=== PATIENT | female | born 1970 | race African-American/Black ===

== ENCOUNTER 2016-07-28 22:12 | Emergency (ER) | payer OTHER ==
--- NOTE | ~2016-07-28 | EKG ---
PATIENT: NOEMI LEE UNIT #: [id number] Ventricular Rate: 63 BPM Atrial Rate: 63 BPM P-R Interval: 178 ms QRS Duration: 92 ms Q-T Interval: 438 ms QTC Calculation(Bezet): 448 ms P [place]: 47 degrees Calculated R Brashe[place]: -31 degrees Calculated T [place]: 0 degrees Diagnosis Line: Normal sinus rhythm Diagnosis Line: Left axis deviation Diagnosis Line: Abnormal ECG Diagnosis Line: When compared with ECG of 22-FEB-2016 11:07, Diagnosis Line: Nonspecific T wave abnormality now evident in Diagnosis Line: Anterior leads Diagnosis Line: Confirmed by REHAN RAMIREZ MD ([id number]) on 07/29/2016 Diagnosis Line: 6:30:06 PM INTERPRETING MD: JAMES BOJORQUEZ
[~2016-07-28 22:12] MED LIST: AMLODIPINE BESY10 MG PO; APRESOLINE; ASPIRIN EC81 M1; ASPIRIN EC81 M1 PO; BACTRIM DS TABL1 TA1 PO; COREG; COREG PO; COREG6.25 MG PO; COZAAR; COZAAR100 MG PO; FERRO-TIME325 MG PO; FLONASE ALLERG9.9 ML; HYDRALAZINE HCL50 MG PO; IRON1 TAB; LASIX PO; LOSARTAN POTAS100 MG; PROTONIX PO; SINGULAIR; SINGULAIR5 MG PO; TRIAMCINOLONE AC1 GM EXT; VITAMIN D50000 UNIT PO; ZYRTEC; ZYRTEC PO
[2016-07-28 22:20] LABS: POC - CKMB 1.9 ng/mL (0.0-7.9); POC - TROPONIN <0.05 ng/mL (<=0.05)
[2016-07-28 22:38] LABS: BASOPHIL# 0.2 X10e3 (0-0.3); BASOPHIL% 1.5 % (0-2.5); DIFF IND NO; EOSINOPHIL# 0.4 X10e3 (0-0.7); EOSINOPHIL% 3.8 % (0.0-7.0); HEMATOCRIT 25.6 % (35.0-45.0); LYMPHOCYTE# 2.4 X10e3 (1.0-3.5); LYMPHOCYTE% 23.3 % (17.0-45.0); MEAN CELL VOLUME 88.1 FL (83-96); MEAN CORPUSCULAR HEMOGLOBIN 27.6 PG (28-34); MEAN CORPUSCULAR HGB CONC 31.4 g/dL (30-36); MEAN PLATELET VOLUME 7.5 FL (6.5-11.5); MONOCYTE# 0.6 X10e3 (0-1.0); MONOCYTE% 5.8 % (3.0-12.0); NEUTROPHIL# 6.8 X10e3 (1.5-7.1); NEUTROPHIL% 65.6 % (40-75); PLATELET COUNT 296 X10e3 (140-420); RED BLOOD COUNT 2.91 X10e (3.90-5.30); RED CELL DISTRIBUTION WIDTH 15.5 % (11.0-15.5); WHITE BLOOD COUNT 10.4 X10e3 (4.0-10.5)
[2016-07-28 22:55] LABS: BUN/CREATININE RATIO 9.56; CALCIUM SERUM 9.2 mg/dL (8.4-10.2); CREATININE SERUM 4.6 mg/dL (0.6-1.4); GLOM FILT RATE Estimated 12.5 mL/min (>60); POTASSIUM 4.3 mmol/L (3.5-5.1)
== END 2016-07-28 23:51 | disposition home or self-care (01) ==
LOC: CED 22:12
PROVIDERS: Emergency Medicine
DX: D64.9 Anemia, unspecified (principal); J45.909 Unspecified asthma, uncomplicated; N28.9 Disorder of kidney and ureter, unspecified; I10 Essential (primary) hypertension; Z98.890 Other specified postprocedural states
CPT/HCPCS: 36415; 80048; 82553; 84484; 84703; 85025; 93005; 99283

== ENCOUNTER 2016-07-31 05:10 | Emergency (ER) | payer BC, OTHER | END 2016-07-31 06:51 | disposition home or self-care (01) | LOC: CED 05:10 | DX: H47.10 Unspecified papilledema (principal); I12.9 Hypertensive chronic kidney disease with stage 1 through stage 4 chronic kidney disease, or unspecified chronic kidney disease; N18.9 Chronic kidney disease, unspecified | CPT/HCPCS: 99282 ==

== ENCOUNTER 2016-08-03 13:20 | Observation (INO) | payer BC, OTHER ==
--- NOTE | ~2016-08-03 | CT71 ---
[facility] A Service [facility] RADIOLOGY TEXT RESULTS PATIENT: NOEMI LEE LOCATION: [facility] : [birth year] UNIT #: [id number] AGE: [address]: Akila Schmitz MD SEX: F ORDER DR: [id number] [facility] [address] [facility]. [place], [place] [address] [id number] MR#: [id number] Acc #: [id number] NAME: NOEMI LEE. : 1970 SEX: F STUDY DATE/TIME: 08/03/2016 14:43 UNIT: [facility] ROOM: [facility] STUDY DESCRIPTION: CT Head Wo Contrast Attending Physician: Akila Schmitz M.D. Ordering Physician: Fredi Boateng D.O. Primary Care Physician: [facility] MEDICAL IMAGING REPORT This report is preliminary unless electronic signature is present EXAM Head CT without contrast. HISTORY Headache with hypertension beginning last night. COMPARISON 05/12/2016 TECHNIQUE Axial images were obtained without contrast. This CT exam was performed with one or more of the following radiation dose reduction techniques: automatic exposure control, adjustment of mA and/or kV according to patient size, and iterative reconstruction. FINDINGS Axial noncontrast images were obtained from the skull base to the vertex. Ventricular size and configuration are normal. There is no evidence of acute infarct or hemorrhage. There are no extra-axial fluid collections. No mass lesion or mass effect is seen. There are no skull fractures. IMPRESSION Normal noncontrast head CT. Dictated by... Randy Riggins M.D. THIS IS AN ELECTRONICALLY VERIFIED REPORT Randy Riggins M.D. at 08/04/2016 10:15 AM RLF/tmw [facility] A Service [facility] RADIOLOGY TEXT RESULTS PATIENT: NOEMI LEE LOCATION: [facility] : 72 UNIT #: [id number] AGE: [address]: Akila Schmitz MD SEX: F ORDER DR: TD: 08/03/2016 16:16 JOB #: [id number] MEDICAL IMAGING REPORT Page 1 of 1 COPY
--- NOTE | ~2016-08-03 | CO ---
Unit #: [id number] #: [id number] Patient: NOEMI LEE [id number] [facility]. [place], [place] [address] [id number] MR#: [id number] NAME: NOEMI LEE. ROOM: 567 Age: 46 Sex: F Admission Date: 08/03/2016 : 1970 Attending Physician: Akila Schmitz M.D. Primary Care Physician: Denise Miranda [facility] CONSULTATION REPORT REASON FOR CONSULTATION CKD. HISTORY Patient is a 46-year-old female followed by [facility] nephrology who presents with a headache. The patient has had multiple admissions in the last few weeks to the emergency room with similar complaints. The patient has a history of hypertension and biopsy-proven hypertensive arteriolosclerosis. The patient's baseline creatinine is about 4.5. Her last visit with [place] nephrology was in March. The patient is on Coreg and hydralazine for hypertension and denies having missed any doses. The patient gives a history of being diagnosed with pseudotumor cerebri approximately a month to 2 months ago, as well as being provided with a neurology consultation as an outpatient. However, patient has not gone for this as yet. The patient is morbidly obese with a BMI of 56. The patient denies any tobacco or drug use, although chart mentions a history of cocaine abuse. Unclear if she has been taking it recently. On admission the patient's blood pressure was 200/100 per the patient. Documented pressures are in the 180s/90 range. The patient's blood pressure this morning is much better at 150/80. Unclear if the patient is compliant with her medications. Patient had a CT scan of the head done, which did not reveal any abnormalities. The patient was scheduled as an outpatient to have an AV fistula placed last week. However, the patient did not have this done, as she works for the [employer] and would prefer to have it done following the end of the school year. She has been scheduled for this on September 07, according to her. The patient's creatinine has risen from a baseline of 4.5 as an outpatient to about 4.9 today. The patient denies any nausea, vomiting or diarrhea. She does, however, have decreased p.o. intake due to her headaches. PAST MEDICAL HISTORY As above. PAST SURGICAL HISTORY As above. MEDICATIONS Unit #: [id number] #: [id number] Patient: NOEMI LEE Reviewed. PHYSICAL EXAMINATION VITAL SIGNS: The patient is afebrile with a heart rate of 57, a blood pressure of 154/99 currently. GENERAL: The patient is morbidly obese, lying comfortably in bed, no apparent distress. CHEST: Clear to auscultation bilaterally. CARDIOVASCULAR: S1, S2 present. Regular rate and rhythm. No S3, S4, murmurs, rubs or gallops. ABDOMEN: Soft, nontender, nondistended, obese. No guarding, rigidity or rebound. EXTREMITIES: With no edema. DIAGNOSTIC STUDIES LABS: Labs are significant for a creatinine of 4.9, sodium of 137, chloride 109, carbon dioxide 20, calcium 8.7, phosphorous 5.3, magnesium 2.3. Hemoglobin is 9.2. UA is positive for protein. The patient has a history of about 3-4 grams of protein as an outpatient. The patient has some red and white cells in the urine, and this has been sent for culture, which is currently pending. ASSESSMENT AND PLAN 1. CKD stage 4. Biopsy-proven arteriolosclerosis. The patient's baseline creatinine is approximately 4 to 4.5. 2. Acute kidney injury, mild. Unclear if this is progressive CKD versus mild volume depletion from decreased p.o. intake. 3. Hypertension. Mild hypertensive urgency, which is now better. We will check a urine drug screen to rule out any recreational drug abuse. Continue Coreg and hydralazine for now. Question compliance of the patient with her hypertensive medications. 4. Headache, unclear etiology. This could be due to hypertension. Unclear if the patient has a diagnosis of pseudotumor cerebri. She may benefit from an MRI and a neurology evaluation either inpatient or outpatient. The patient could also have migraine, since she has been suffering from this for several years at this time. 5. Anemia, mild. Will check iron profile. She may need IV iron. PLAN No indication for dialysis at this time. The patient has progressive CKD; however, her volume, as well as her labs, remains not critical and, at this time, does not warrant initiation of hemodialysis. Continue currently medications. Will closely follow this patient. Thank you for the consultation. Dictated by... Axel Cazares/teetee TD: 08/04/2016 10:49 JOB #: [id number] Unit #: [id number] #: [id number] Patient: DES LEEAYAN Jose Manuel CONSULTATION REPORT Page 1 of 1 X X CONSULTATION REPORT
--- NOTE | ~2016-08-03 | BMI ---
[facility] Nutrition Therapy DATE: 08/04/16 Patient: NOEMI Richard ROSA Physician: DANA Address: [address] [place] [address] Room/Bed: [address] [place] [address], Zip: [place] [address] Admit Date: 08/03/16 Date of : [birth year] Height: 5 1 Weight: 302 137.2 HIGH BMI NOTE: DX: 46 Y.O. FEMALE ADMITTED FOR HIGH BLOOD PRESSURE ANTHROPOMETRICS: 5'1", WT: 302# (137 KG), BMI: 57.1 DIET: RENAL INTERVENTION: 1. RENAL DIET RECOMMENDATIONS: 1. RECOMMEND TO ADD HH TO CURRENT DIET ORDER ABOVE TO PROMOTE GRADUAL WEIGHT LOSS TOWARDS HEALTHY BMI (19.0-25.0) OR +/-10%IBW RD WILL F/U PER PROTOCOL Respectfully, NEVILLE SANDERS MS, RD, LD Food and Nutritional Services [facility] cc: client file
--- NOTE | ~2016-08-03 | HP ---
Unit #: [id number] #: [id number] Patient: NOEMI LEE [id number] [facility] [address] [facility]. [place], [place] [address] [id number] MR#: [id number] NAME: NOEMI LEE. ROOM: Age: 46 Sex: F Admission Date: 08/03/2016 : 1970 Attending Physician: Fredi Boateng D.O. Primary Care Physician: [facility] HISTORY AND PHYSICAL CHIEF COMPLAINT Headache, high blood pressure. HISTORY OF PRESENT ILLNESS The patient is a 46-year-old female with past medical history of chronic kidney disease, chronic anemia, hypertension, who presented to the emergency department for evaluation of the above. The patient states that she has had intermittent headache since July 27, 2016. She states that the headache returned on the evening prior to admission. She states it involves her entire head but is worse on the left side. She describes it as "pressure." She states that it feels like she is "swimming." There are no exacerbating or alleviating factors. She states it is similar to when she has had headaches in the past. She denies any fever, no light or sound sensitivity. She denies any cough or fever. No bowel or bladder problems. In the emergency department initial blood pressure was 187/90, pulse 64. CT of the head was normal. Laboratory notable for BUN and creatinine of 57 and 4.7 respectively. She was given 4 mg of morphine as well as 4 mg of Zofran. She is being admitted to [facility] for evaluation and further treatment. Most recent blood pressure is 154/94. Of note, the patient was seen in the emergency department on July 31, 2016 for headache and was discharged home with sinusitis. PAST MEDICAL HISTORY 1. Admission to [facility] February 22, 2016 for chest pain. She underwent a stress test during that admission that showed no evidence of ischemia, with an ejection fraction of 70%. 2. Chronic kidney disease, followed by [facility] nephrology. The patient states that she is supposed to be getting a fistula placed. She states that she was on dialysis following . 3. Hypertension. 4. Chronic anemia. PAST SURGICAL HISTORY . SOCIAL HISTORY The patient denies tobacco use. She states that she drinks occasionally. Per record review there is a history of former cocaine abuse. [facility] Unit #: [id number] #: [id number] Patient: NOEMI LEE FAMILY HISTORY Family history is notable for her maternal grandmother having congestive heart failure, coronary artery disease, diabetes. There is no family history of kidney disease. ALLERGIES No known allergies. HOME MEDICATIONS Carvedilol, hydralazine, iron, aspirin, Zyrtec, Singulair, amoxicillin. Home medications will need to be reviewed and verified. REVIEW OF SYSTEMS A complete review of systems is negative except as indicated in the HPI. Patient states that she has been taking her medications as prescribed with the last dose being this morning. She states that three to four months ago her hydralazine was increased from 50 mg t.i.d. to 100 mg t.i.d. DIAGNOSTIC STUDIES IMAGING: CT of the head shows nothing acute. LABORATORY: Complete blood count notable for hemoglobin and hematocrit of 8.9 and 29.1 respectively. INR is 1. Comprehensive metabolic panel notable for bicarb of 21, BUN and creatinine 57 and 4.7 respectively, albumin is 3.4. Urinalysis notable for 3+ protein, 1+ blood with 10 to 25 red blood cells. PHYSICAL EXAMINATION VITAL SIGNS: Temperature is 97.9. Pulse 64. Respirations 16. Blood pressure 187/90. GENERAL: The patient is an -Irish female who is awake and alert, in no acute distress. HEENT: The head is atraumatic. Mucous membranes are moist. NECK: Neck is supple. Trachea is midline. CARDIOVASCULAR: Regular rate and rhythm. LUNGS: Lungs are clear to auscultation bilaterally with no increased work of breathing. ABDOMEN: Abdomen is soft, nontender, with bowel sounds present in all four quadrants. EXTREMITIES: Extremities are nontender, with no pedal edema. NEUROLOGIC: The patient is awake and alert. She follows commands. PSYCHIATRIC: Mood and affect are normal. The patient is cooperative. SKIN: Skin of examined areas is warm and dry. ASSESMENT The patient is a 46-year-old female with: 1. Uncontrolled hypertension. 2. Chronic kidney disease. The patient's creatinine was 4.6 on July 28, 2016. It is 4.7 today. She is followed by [facility] nephrology. 3. Chronic anemia. The patient's hemoglobin was 8 on July 28, 2016. It was 8.9 today. 4. Morbid obesity with a BMI of 56. PLAN 1. Admit for observation to intermediate level. 2. Two-D echo for further evaluation of uncontrolled hypertension. Unit #: [id number] #: [id number] Patient: NOEMI LEE 3. Check EKG and cardiac enzymes. 4. TSH. 5. P.r.n. clonidine. 6. Consult Dr. Appiah regarding chronic kidney disease. 7. Strict Is and Os. 8. Urine culture and sensitivity on urine in the lab. 9. P.r.n. [place]. 10. P.r.n. Zofran. 11. Repeat labs in the morning. 12. SCDs for DVT prophylaxis. 13. Additional workup and consultants based on above. Dictated by Axel Lindsey/art TD: 08/03/2016 16:47 JOB #: [id number] HISTORY AND PHYSICAL Page 1 of 1 X Betty Lambert MD X HISTORY AND PHYSICAL
--- NOTE | ~2016-08-03 | EKG ---
PATIENT: NOEMI LEE UNIT #: [id number] Ventricular Rate: 57 BPM Atrial Rate: 57 BPM P-R Interval: 174 ms QRS Duration: 90 ms Q-T Interval: 450 ms QTC Calculation(Bezet): 438 ms P [place]: 67 degrees Calculated R [place]: -30 degrees Calculated T [place]: 7 degrees Diagnosis Line: Sinus bradycardia Diagnosis Line: Left axis deviation Diagnosis Line: Abnormal ECG Diagnosis Line: When compared with ECG of 28-JUL-2016 22:05, Diagnosis Line: Nonspecific T wave abnormality no longer evident Diagnosis Line: in Anterior leads Diagnosis Line: Confirmed by WANG KATHLEEN MD ([id number]) on Diagnosis Line: 08/04/2016 11:09:35 PM INTERPRETING MD: CHARLENE
--- NOTE | ~2016-08-03 | CO ---
Unit #: [id number] #: [id number] Patient: NOEMI LEE [id number] [facility] [address] [facility]. [place], [place] [address] [id number] MR#: [id number] NAME: NOEMI LEE. ROOM: 567 Age: 46 Sex: F Admission Date: 08/03/2016 : 1970 Attending Physician: Akila Schmitz M.D. Primary Care Physician: Denise Miranda [facility] Requesting Physician: Akila Schmitz M.D. Consultation Date: 08/04/2016 CONSULTATION REPORT REASON FOR CONSULTATION Headaches. PATIENT IDENTIFICATION This is a 46-year-old, right-handed, female who is evaluated in room 567 at [facility]. SOURCE OF INFORMATION The patient and evaluation by Dr. Schmitz and my discussion with Dr. Schmitz. PROBLEM LIST 1. Hypertension. 2. Chronic kidney disease. 3. Chronic anemia. 4. Morbid obesity with BMI of 56. HISTORY OF PRESENT ILLNESS This is a very pleasant 46-year-old, right-handed, female who is evaluated in room 567 at [facility]. She was admitted because she has been having some headaches. In looking at the records, she has been to the hospital several times with headaches. This time it was diagnosed that most likely it was her hypertension. She has been as high as 196 systolic and 104 diastolic. When that was treated, she is doing much better, so she was seen by nephrology, as her nephrologists are at [facility], and they want to make sure that neurological evaluation is done. She had a head CT done, which was reported as unremarkable, but I am concerned there may be slit-like ventricles, but the patient refused LP, and also she has renal issues, so she could not be put on Diamox or Topamax. The headaches are much better anyway, but the concern is still there. She denies any vision changes. She denies any change in color or visual marie. She denies any neck stiffness. She does have weight issues, and she says that "I am working on it." Unfortunately, lately she does report some increased in the weight. No falls or injuries. Nothing suggesting meningismus. No infection. She does not take any megavitamins or has dietary changes or is taking any hormonal therapy or Erythromycin or tetracycline or control pills or steroids. No falls, head injury, etc. PAST MEDICAL HISTORY As discussed above. PAST SURGICAL HISTORY Unit #: [id number] #: [id number] Patient: NOEMI LEE As discussed above. ALLERGIES None. HOME MEDICATIONS Supposedly were carvedilol, hydralazine, iron, aspirin, Zyrtec, Singulair, amoxicillin, which was started lately. FAMILY HISTORY Reviewed. Congestive heart failure in maternal grandmother and coronary artery disease, diabetes. SOCIAL HISTORY The patient is apparently living with her fiance. She denies tobacco use. She drinks alcohol occasionally. There is concern about prior cocaine use, but I was not able to corroborate that. REVIEW OF SYSTEMS A detailed review of systems was attempted. CONSTITUTIONAL: There are weight issues. No fever, chills, rigors or sweats. HEENT: Headache is much better. No neck problems. CARDIOVASCULAR: No chest pain, clubbing, cyanosis, orthopnea or palpitations. PULMONARY: No shortness of air, cough or expectorations. GASTROINTESTINAL: No nausea, vomiting, diarrhea or constipation. GENITOURINARY: No genitourinary symptoms. EXTREMITIES: No other extremity problems. SPINE: No back problem. PSYCHIATRIC: No psychiatric issues. NEUROLOGIC: Issue was headaches. HEMATOLOGIC: No hematologic problems. DERMATOLOGIC: No dermatologic problems. ENDOCRINE: No endocrine problems. NEPHROLOGY: She has renal problems. PHYSICAL EXAMINATION VITAL SIGNS: Latest vital signs were temperature 97.7, pulse 65, respirations 20, blood pressure 116/69, weight 302 pounds. BMI was 56. NEUROLOGIC EXAMINATION MENTAL STATUS: The patient is awake. She is alert. She is oriented. She can name. She can follow commands. No right/left confusion. No finger agnosia. CRANIAL NERVES: Examination demonstrates full marie of vision to confrontation. Eye movements are conjugate. I did not see any ptosis. I did not see any nystagmus. Extraocular movements are intact. Visual acuity is 20/20 -2, both eyes, uncorrected. Funduscopic examination was not successful. Sensation of the face and scalp are normal. Strength and muscles of facial expression are normal. Hearing seemed to be intact bilaterally. Tongue was midline. I could not visualize the oropharynx or uvula. Head turning was spontaneous. MOTOR: Examination demonstrated normal bulk and tone. Strength was essentially 5/5. SENSORY EXAMINATION: Intact for soft touch and pain sensation. No extinction was seen. Romberg was not evaluated. GAIT: Examination was deferred. Unit #: [id number] #: [id number] Patient: NOEMI LEE REFLEXES: I could not get any reflexes. Toes are equivocal. COORDINATION: Coordination was normal, rzrbbc-bp-brun-to-finger and ami-ci-sdwxna. DIAGNOSTIC STUDIES LABS: BUN was 53, creatinine was 4.9. TSH was 5.25. White count is 11.4, H and H of 9.2 and 29.6, platelet count is 373. Urinalysis - Some WBCs. IMAGING: Head CT was reviewed. IMPRESSION This is a very interesting 46-year-old female with some weight issues and headaches, although it looks like this was probably from hypertension because she is much better without any other treatment. She does not even tell me, except for a few occasions that she came to the hospital, that she has chronic headaches or migraine-type situation. She has no vision changes, but with patients of her age and her weight, headaches are always concerning for conditions like pseudotumor cerebri. She refuses LP, so my recommendation is to have outpatient ophthalmology evaluation, which will at least consist of dilated examination, funduscopic and also visual marie. If there is any concern, then definitely spinal tap with opening pressure would be indicated, and further treatment would be based on that and maybe at that time consider medications, but at present everything is doing fine, and I told her that it is not just the headache and it is not just the vision but rather the visual marie that are the biggest problem, and that is why she has to take it very seriously. She states she will follow up, and I have informed Dr. Schmitz that she may be discharged to do that testing. She has to go to [facility] ophthalmology department because there is a very good neuroophthalmologist, but for just the testing, she can go anywhere also. Call me for any other questions, issues or concerns, and I will be more than glad to revisit this situation. Nonetheless, I do want to say that she has to lose weight, and dietary evaluation and treatment is recommended outpatient or otherwise. Dictated by... Axel Pizano/teetee TD: 08/05/2016 11:55 JOB #: [id number] Unit #: [id number] #: [id number] Patient: NOEMI LEE CONSULTATION REPORT Page 1 of 1 X Talha Burton MD X CONSULTATION REPORT
--- NOTE | ~2016-08-03 | DS ---
Unit #: [id number] #: [id number] Patient: NOEMI NOLASCO [id number] [address] [address] [id number] I MR#: [id number] NAME: NOEMI NOLASCO. ROOM: 567 Age: 46 Sex: F Admission Date: 08/03/2016 : 1970 Discharge Date: 08/05/2016 Attending Physician: Akila Schmitz M.D. Primary Care Physician: [facility] DISCHARGE SUMMARY PRINCIPAL DIAGNOSES 1. Hypertensive urgency. 2. Left sided headache, not otherwise specified. 3. Acute kidney injury on chronic kidney disease stage 5: Discharge creatinine 4.9. 4. Anemia of chronic kidney disease. 5. Obstructive sleep apnea, treated. 6. Seasonal allergies. 7. Iron deficiency anemia. 8. Morbid obesity. CONSULTANTS 1. Dr. Ha - [facility]ph[facility]. 2. Dr. Burton - Neurology. PROCEDURE CT of the head without contrast on August 03, 2016, which is normal. CLINICAL HISTORY/HOSPITAL COURSE Ms. Nolasco is a 46-year-old -[place] female with a history of severe chronic kidney disease who presented to the emergency department with complaints of headache and found to have high blood pressure at home. Please refer to H and P for further details. Blood pressure upon presentation was 187/90 and patient was given appropriate IV medications. Patient was also complaining of headache which has been present for several days. She underwent a CT scan of her head which was unremarkable. However, she has been in the ER on two occasions for this headache and, thus, was placed in observation for evaluation. In regards to patient's hypertension, she was placed back on her home medications and blood pressure has now remained stable. She will continue these medications upon discharge. In regards to patient's chronic kidney disease, her baseline creatinine appears to be approximately 4.[address] Ha was consulted. On the day of discharge, creatinine is 4.9 and patient has a mild non-anion gap metabolic acidosis with a discharge bicarbonate of 20. Dr. Ha gave the patient a small amount of IV fluids and stated simply she needed to follow up in the office. Plan is for patient to get a fistula as an outpatient. Patient is having recurrent intermittent headache over the past 7 to 10 days. After discussion with Dr. Ha, the patient has had those headaches on and off for several years. She has no neurologic deficit from the headache. She has questionable papilledema on examination but Unit #: [id number] #: [id number] Patient: NOEMI NOLASCO patient is refusing lumbar puncture for evaluation of pseudotumor cerebri. She is also not a candidate for Diamox therapy given her already known metabolic acidosis. This was discussed with Dr. Ha. The patient was seen in consultation by Dr. Burton who recommended patient to have outpatient dilated eye exam to evaluate for papilledema and formal visual field testing. If these are abnormal, LP can be pursued as an outpatient. He does not feel these are migraine-type headaches. Patient is also not a candidate for Topamax due to her metabolic acidosis. I will note, patient received antibiotics due to questionable sinusitis but this is not noted on CT scan of the head. She can complete her course of antibiotics as outlined. I have instructed her to continue with her CPAP given sleep apnea may contribute to headache. Patient will be discharged home today. DISCHARGE CONDITION Stable. DISCHARGE STATUS Discharge to home. DISCHARGE MEDICATIONS 1. Flonase 0.05% nasal spray, one spray per nostril daily. 2. Zyrtec 10 mg daily. 3. Carvedilol 12.5 mg b.i.d. 4. Hydralazine 100 mg p.o. t.i.d. 5. Ferrous sulfate 325 mg p.o. t.i.d. 6. Singulair 10 mg daily. 7. Aspirin 81 mg daily. 8. Amoxicillin 875 mg p.o. b.i.d. until complete. DISCHARGE INSTRUCTIONS Patient instructed to follow a heart healthy, low calorie diet. She has been encouraged to lose some weight given this is likely contributing to headache. She can increase her activity as tolerated. Should also monitor her phosphorus intake. FOLLOWUP Patient will follow up with Dr. Ha and/or her [facility] as previously scheduled. She can follow up with her primary care provider in two weeks. Again, she will be referred to ophthalmology for a dilated eye exam and, if papilledema, outpatient lumbar puncture. Time spent on case today - 47 minutes. Dictated by... Akila Schmitz M.D. IRIS/vesta TD: 08/07/2016 08:57 JOB #: [id number] Unit #: [id number] #: [id number] Patient: NOEMI NOLASCO DISCHARGE SUMMARY Page 1 of 1 X Akila Schmitz MD X DISCHARGE SUMMARY
[2016-08-03 13:14] LABS: BASOPHIL% 0.2 % (0-2.5); DIFF IND NO; EOSINOPHIL# 0.3 X10e3 (0-0.7); EOSINOPHIL% 2.6 % (0.0-7.0); HEMATOCRIT 29.1 % (35.0-45.0); HEMOGLOBIN 8.9 gm/dL (12.0-16.0); LYMPHOCYTE# 2.8 X10e3 (1.0-3.5); LYMPHOCYTE% 23.7 % (17.0-45.0); MEAN CELL VOLUME 88.4 FL (83-96); MEAN CORPUSCULAR HGB CONC 30.6 g/dL (30-36); MEAN PLATELET VOLUME 7.5 FL (6.5-11.5); MONOCYTE# 0.7 X10e3 (0-1.0); MONOCYTE% 6.3 % (3.0-12.0); NEUTROPHIL% 67.2 % (40-75); PLATELET COUNT 351 X10e3 (140-420); RED CELL DISTRIBUTION WIDTH 15.6 % (11.0-15.5); WHITE BLOOD COUNT 11.9 X10e3 (4.0-10.5)
[2016-08-03 13:25] LABS: PARTIAL THROMBOPLASTIN TIME 27.5 SECONDS (23.5-31.3); PROTHROMBIN TIME (PATIENT) 10.3 SECONDS (9.6-11.5)
[2016-08-03 13:45] LABS: URINE SOURCE CLEAN CATCH
[2016-08-03 13:53] LABS: ALBUMIN SERUM 3.4 g/dL (3.5-5.0); ALKALINE PHOSPHATASE 72 U/L (32-92); ALT (SGPT) 15 U/L (10-40); AST (SGOT) 12 U/L (10-42); BILIRUBIN,TOTAL 0.3 mg/dL (0.2-2.0); BLOOD UREA NITROGEN 57 mg/dL (9-23); BUN/CREATININE RATIO 12.12; CARBON DIOXIDE 21 mmol/L (22-31); CHLORIDE 110 mmol/L (100-111); CREATININE SERUM 4.7 mg/dL (0.6-1.4); GLOM FILT RATE Estimated 12.1 mL/min (>60); GLUCOSE FASTING 84 mg/dL (70-110); POTASSIUM 4.1 mmol/L (3.5-5.1); SODIUM 139 mmol/L (135-145)
[2016-08-03 13:54] LABS: BILIRUBIN, DIRECT <0.1 mg/dL (0.0-0.2); BILIRUBIN,INDIRECT 0.2 mg/dL (0.0-0.9)
[2016-08-03 14:12] LABS: URINE APPEARANCE CLEAR; URINE BACTERIA AUWI NEG (NEGATIVE); URINE BILIRUBIN NEG (NEG); URINE BLOOD 1+ (NEG); URINE COLOR YELLOW; URINE GLUCOSE NEG (NEG); URINE KETONE NEG (NEG); URINE LEUKOCYTE ESTERASE NEG (NEG); URINE NITRATE NEG (NEG); URINE PH 5.5 (5-8); URINE PROTEIN 3+ (NEG); URINE SPECIFIC GRAVITY 1.012 (1.003-1.035); URINE SQUAMOUS EPITHELIAL CELL OCC /[HPF]; URINE UROBILINOGEN 0.2 MG/DL (NEG)
[2016-08-03 14:15] LABS: CULTURE INDICATED? NO
[2016-08-03] MEDS ORDERED: HYDRALAZINE HC100 MG PO (16:40)
[2016-08-03] MEDS ORDERED: CARVEDILOL12.5 MG PO (16:41)
[2016-08-03] MEDS ORDERED: ASPIRIN81 MG PO (16:41)
[2016-08-03] MEDS ORDERED: IRON325 MG PO (16:41)
[2016-08-03] MEDS ORDERED: ZYRTEC10 M1 PO (16:42)
[2016-08-03] MEDS ORDERED: SINGULAIR PO (16:42)
[2016-08-03] MEDS ORDERED: AMOXICILLIN (16:42)
[2016-08-03] MEDS ORDERED: FLONASE 0.05% N16 G1 (16:42)
[2016-08-03 18:25] LABS: %MB 2.6 % (0.0-4.0); MB 1.7 ng/ml
[2016-08-04 00:20] LABS: %MB 2.8 % (0.0-4.0); MB 1.7 ng/ml
[2016-08-04 05:46] LABS: BASOPHIL# 0.2 X10e3 (0-0.3); BASOPHIL% 1.5 % (0-2.5); DIFF IND NO; EOSINOPHIL# 0.4 X10e3 (0-0.7); EOSINOPHIL% 3.9 % (0.0-7.0); HEMATOCRIT 29.6 % (35.0-45.0); HEMOGLOBIN 9.2 gm/dL (12.0-16.0); LYMPHOCYTE# 2.9 X10e3 (1.0-3.5); LYMPHOCYTE% 25.7 % (17.0-45.0); MEAN CELL VOLUME 88.1 FL (83-96); MEAN CORPUSCULAR HEMOGLOBIN 27.2 PG (28-34); MEAN CORPUSCULAR HGB CONC 30.9 g/dL (30-36); MEAN PLATELET VOLUME 7.7 FL (6.5-11.5); MONOCYTE# 0.7 X10e3 (0-1.0); MONOCYTE% 5.9 % (3.0-12.0); NEUTROPHIL# 7.2 X10e3 (1.5-7.1); PLATELET COUNT 373 X10e3 (140-420); RED BLOOD COUNT 3.36 X10e (3.90-5.30); RED CELL DISTRIBUTION WIDTH 15.5 % (11.0-15.5); WHITE BLOOD COUNT 11.4 X10e3 (4.0-10.5)
[2016-08-04 06:20] LABS: ALBUMIN SERUM 3.2 g/dL (3.5-5.0); BILIRUBIN,TOTAL 0.3 mg/dL (0.2-2.0); BUN/CREATININE RATIO 10.81; CALCIUM SERUM 8.7 mg/dL (8.4-10.2); CREATININE SERUM 4.9 mg/dL (0.6-1.4); GLOM FILT RATE Estimated 11.5 mL/min (>60); MAGNESIUM 2.3 mg/dL (1.6-3.0); PHOSPHOROUS 5.3 mg/dL (2.5-4.6); POTASSIUM 4.6 mmol/L (3.5-5.1); PROTEIN TOTAL SERUM 6.8 g/dL (6.0-8.3)
[2016-08-04] MEDS ORDERED: AMOXICILLIN875 MG PO (18:16)
== END 2016-08-05 00:05 | disposition home or self-care (01) ==
LOC: CED 13:20 → C5C 16:35
PROVIDERS: Emergency Medicine
DX: I16.0 Hypertensive urgency (principal); R51 Headache; I12.0 Hypertensive chronic kidney disease with stage 5 chronic kidney disease or end stage renal disease; N18.5 Chronic kidney disease, stage 5; N17.9 Acute kidney failure, unspecified; D63.1 Anemia in chronic kidney disease; G47.33 Obstructive sleep apnea (adult) (pediatric); J30.2 Other seasonal allergic rhinitis; E66.01 Morbid (severe) obesity due to excess calories; Z68.43 Body mass index [BMI] 50.0-59.9, adult; D50.9 Iron deficiency anemia, unspecified; I08.8 Other rheumatic multiple valve diseases
CPT/HCPCS: 36415; 70450; 80048; 80053; 80076; 81003; 82550; 82553; 83735; 84100; 84443; 84484; 84703; 85025; 85610; 85730; 87086; 87088; 87186; 93005; 93306; 96374; 96375; 99285; G0378; J2270; J2405

== ENCOUNTER 2016-10-05 23:39 | Emergency (ER) | payer BC, OTHER ==
[~2016-10-05 23:39] MED LIST changes: +AMOXICILLIN; +AMOXICILLIN875 MG PO; +ASPIRIN81 MG PO; +CARVEDILOL12.5 MG PO; +FLONASE 0.05% N16 G1; +HYDRALAZINE HC100 MG PO; +IRON325 MG PO; +SINGULAIR PO; +ZYRTEC10 M1 PO
== END 2016-10-06 02:19 | disposition home or self-care (01) ==
LOC: CED 23:39
DX: R51 Headache (principal); I12.0 Hypertensive chronic kidney disease with stage 5 chronic kidney disease or end stage renal disease; N18.9 Chronic kidney disease, unspecified; Z88.8 Allergy status to other drugs, medicaments and biological substances; Z79.82 Long term (current) use of aspirin; Z79.899 Other long term (current) drug therapy
CPT/HCPCS: 96374; 96375; 99284; J0780; J1200; J1885; J2060; J2930

== ENCOUNTER 2016-12-16 23:34 | Emergency (ER) | payer BC ==
[~2016-12-16] VITALS: Ht 154.9 cm; Wt 128.4 kg
--- NOTE | ~2016-12-16 | CR72 ---
[facility] A Service of [facility] RADIOLOGY TEXT RESULTS PATIENT: NOEMI LEE LOCATION: [facility] : 72 UNIT #: [id number] AGE: [address]: Vlad Nunez MD SEX: F ORDER DR: [id number] [facility] [address] [place], [place] [address] [id number] MR#: [id number] Acc #: [id number] NAME: NOEMI LEE. : 1970 SEX: F STUDY DATE/TIME: 12/17/2016 00:40 UNIT: [facility] ROOM: STUDY DESCRIPTION: CR Chest Single View Portable Attending Physician: Vlad Nunez M.D. Ordering Physician: Vlad Nunez M.D. Primary Care Physician: Flakita Chatterjee M.D. MEDICAL IMAGING REPORT This report is preliminary unless electronic signature is present EXAM Portable chest 12/17/2016 at 0040 hours INDICATION Cough, congestion, chest pain, shortness of air for 3 days. FINDINGS AP portable chest compared with 02/21/2016. Heart is enlarged. Lungs are clear. Vascularity is normal. There is no pneumothorax. IMPRESSION Cardiomegaly. No active disease. Dictated by... Randy Perez Jr., M.D. THIS IS AN ELECTRONICALLY VERIFIED REPORT Randy Perez Jr., M.D. at 12/18/2016 9:10 PM BARRIE/jewel TD: 12/18/2016 09:05 JOB #: [id number] MEDICAL IMAGING REPORT Page 1 of 1 COPY
--- NOTE | ~2016-12-16 | EKG ---
PATIENT: NOEMI LEE UNIT #: [id number] Ventricular Rate: 85 BPM Atrial Rate: 85 BPM P-R Interval: 178 ms QRS Duration: 102 ms Q-T Interval: 388 ms QTC Calculation(Bezet): 461 ms P [place]: 64 degrees Calculated R [place]: -53 degrees Calculated T [place]: 47 degrees Diagnosis Line: Normal sinus rhythm Diagnosis Line: Left anterior fascicular block Diagnosis Line: Borderline ECG Diagnosis Line: No previous ECGs available Diagnosis Line: Confirmed by NEYDA FRIED MD ([id number]) on 12/17/2016 Diagnosis Line: 11:06:29 PM INTERPRETING MD: FARIHA BOJORQUEZ
[2016-12-17 00:49] LABS: POC - CKMB 1.2 ng/mL (0.0-7.9); POC - TROPONIN <0.05 ng/mL (<=0.05)
[2016-12-17 01:00] LABS: BASOPHIL% 0.3 % (0-2.5); EOSINOPHIL# 0.3 X10e3 (0-0.7); EOSINOPHIL% 3.6 % (0.0-7.0); HEMATOCRIT 25.7 % (35.0-45.0); HEMOGLOBIN 8.1 gm/dL (12.0-16.0); LYMPHOCYTE# 2.1 X10e3 (1.0-3.5); LYMPHOCYTE% 21.8 % (17.0-45.0); MEAN CELL VOLUME 90.9 FL (83-96); MEAN CORPUSCULAR HEMOGLOBIN 28.5 PG (28-34); MEAN CORPUSCULAR HGB CONC 31.4 g/dL (30-36); MEAN PLATELET VOLUME 7.5 FL (6.5-11.5); MONOCYTE# 0.6 X10e3 (0-1.0); MONOCYTE% 6.5 % (3.0-12.0); NEUTROPHIL# 6.4 X10e3 (1.5-7.1); NEUTROPHIL% 67.8 % (40-75); PLATELET COUNT 292 X10e3 (140-420); RED BLOOD COUNT 2.83 X10e (3.90-5.30); RED CELL DISTRIBUTION WIDTH 15.3 % (11.0-15.5); WHITE BLOOD COUNT 9.4 X10e3 (4.0-10.5)
[2016-12-17 01:02] LABS: DIFF IND NO
[2016-12-17 01:13] LABS: PARTIAL THROMBOPLASTIN TIME 26.2 SECONDS (23.5-31.3); PROTHROMBIN TIME (PATIENT) 10.5 SECONDS (10.0-11.7)
[2016-12-17 01:35] LABS: ALBUMIN SERUM 3.3 g/dL (3.5-5.0); BILIRUBIN, DIRECT 0.1 mg/dL (0.0-0.2); BILIRUBIN,INDIRECT 0.5 mg/dL (0.0-0.9); BILIRUBIN,TOTAL 0.6 mg/dL (0.2-2.0); BUN/CREATININE RATIO 9.07; CALCIUM SERUM 9.1 mg/dL (8.4-10.2); CREATININE SERUM 5.4 mg/dL (0.6-1.4); GLOM FILT RATE Estimated 10.3 mL/min (>60); MAGNESIUM 2.4 mg/dL (1.6-3.0); POTASSIUM 4.1 mmol/L (3.5-5.1); PROTEIN TOTAL SERUM 6.6 g/dL (6.0-8.3)
[2016-12-17 02:40] LABS: POC - CKMB <1.0 ng/mL (0.0-7.9); POC - TROPONIN <0.05 ng/mL (<=0.05)
== END 2016-12-17 03:42 | disposition short-term general hospital (02) ==
LOC: CED 23:34
PROVIDERS: Emergency Medicine
DX: R07.89 Other chest pain (principal); R00.2 Palpitations; I10 Essential (primary) hypertension; Z79.82 Long term (current) use of aspirin; Z79.899 Other long term (current) drug therapy; Z88.8 Allergy status to other drugs, medicaments and biological substances
CPT/HCPCS: 36415; 71010; 80048; 80076; 82553; 83735; 84443; 84484; 85025; 85610; 85730; 93005; 99285

== ENCOUNTER 2016-12-26 10:22 | Emergency (ER) | payer BC ==
[~2016-12-26] VITALS: Ht 154.9 cm; Wt 125.6 kg
--- NOTE | ~2016-12-26 | CR72 ---
[facility] A Service of [facility] & [facility] RADIOLOGY TEXT RESULTS PATIENT: NOEMI LEE LOCATION: [facility] : 72 UNIT #: [id number] AGE: [address]: Vlad Hernandez MD SEX: F ORDER DR: [id number] [facility] [address] [place], [place] [address] [id number] E MR#: [id number] Acc #: [id number] NAME: NOEMI LEE. : 1970 SEX: F STUDY DATE/TIME: 12/26/2016 10:56 UNIT: [facility] ROOM: STUDY DESCRIPTION: CR Chest Single View Portable Attending Physician: Vlad Hernandez M.D. Ordering Physician: Ed Doctor [id number] [facility] Primary Care Physician: Flakita Chatterjee M.D. MEDICAL IMAGING REPORT This report is preliminary unless electronic signature is present EXAM Portable chest 12/26 INDICATIONS Chest pain, cough and shortness of air for 2 days. FINDINGS AP portable chest compared with 12/17/2016. Heart is enlarged. There is some atelectasis in the lingula. Lungs otherwise are clear. No pneumothorax. IMPRESSION Stable cardiomegaly. Mild lingular at 4electasis. Otherwise negative. Dictated by... Randy Perez Jr., M.D. THIS IS AN ELECTRONICALLY VERIFIED REPORT Randy Perez Jr., M.D. at 12/27/2016 2:18 PM RLJose/anabelr TD: 12/26/2016 15:57 JOB #: [id number] MEDICAL IMAGING REPORT Page 1 of 1 COPY
--- NOTE | ~2016-12-26 | EKG ---
PATIENT: NOEMI LEE UNIT #: [id number] Ventricular Rate: 82 BPM Atrial Rate: 82 BPM P-R Interval: 146 ms QRS Duration: 78 ms Q-T Interval: 374 ms QTC Calculation(Bezet): 436 ms P [place]: 61 degrees Calculated R [place]: -11 degrees Calculated T [place]: 8 degrees Diagnosis Line: Normal sinus rhythm Diagnosis Line: Normal ECG Diagnosis Line: When compared with ECG of 16-DEC-2016 23:45, Diagnosis Line: Left anterior fascicular block is no longer Diagnosis Line: Present Diagnosis Line: Confirmed by SANDHYA LOZADA MD ([id number]) on Diagnosis Line: 12/26/2016 3:27:23 PM INTERPRETING MD: NEVILLE BOJORQUEZ
[2016-12-26 10:57] LABS: BASOPHIL% 0.4 % (0-2.5); EOSINOPHIL# 0.6 X10e3 (0-0.7); EOSINOPHIL% 6.3 % (0.0-7.0); HEMATOCRIT 27.2 % (35.0-45.0); HEMOGLOBIN 8.5 gm/dL (12.0-16.0); LYMPHOCYTE% 21.3 % (17.0-45.0); MEAN CELL VOLUME 90.8 FL (83-96); MEAN CORPUSCULAR HEMOGLOBIN 28.3 PG (28-34); MEAN CORPUSCULAR HGB CONC 31.1 g/dL (30-36); MEAN PLATELET VOLUME 6.9 FL (6.5-11.5); MONOCYTE# 0.7 X10e3 (0-1.0); MONOCYTE% 7.7 % (3.0-12.0); NEUTROPHIL% 64.3 % (40-75); PLATELET COUNT 301 X10e3 (140-420); RED BLOOD COUNT 2.99 X10e (3.90-5.30); RED CELL DISTRIBUTION WIDTH 14.6 % (11.0-15.5); WHITE BLOOD COUNT 9.4 X10e3 (4.0-10.5)
[2016-12-26 11:00] LABS: DIFF IND NO
[2016-12-26 11:24] LABS: POC - CKMB 1.7 ng/mL (0.0-7.9); POC - TROPONIN <0.05 ng/mL (<=0.05)
[2016-12-26 11:35] LABS: BUN/CREATININE RATIO 7.14; CALCIUM SERUM 9.5 mg/dL (8.4-10.2); CREATININE SERUM 5.6 mg/dL (0.6-1.4); GLOM FILT RATE Estimated 9.8 mL/min (>60); POTASSIUM 4.5 mmol/L (3.5-5.1)
== END 2016-12-26 12:53 | disposition home or self-care (01) ==
LOC: CED 10:22
PROVIDERS: Emergency Medicine
DX: J45.901 Unspecified asthma with (acute) exacerbation (principal); I12.0 Hypertensive chronic kidney disease with stage 5 chronic kidney disease or end stage renal disease; N18.6 End stage renal disease; J45.909 Unspecified asthma, uncomplicated; Z88.8 Allergy status to other drugs, medicaments and biological substances
CPT/HCPCS: 36415; 71010; 80048; 82553; 83880; 84484; 85025; 93005; 94640; 96374; 99285; J2930